=== PATIENT | female | born 1950 | race Caucasian/White ===

== ENCOUNTER 2021-10-24 11:16 | Inpatient (IN) ==
[2021-10-24 15:17] LABS: Urine Appearance Cloudy; Urine Bilirubin Negative (Negative); Urine Blood Negative (Negative); Urine Color Yellow; Urine Glucose 2+(150 mg/dL) (Negative); Urine Ketones Negative (Negative); Urine Nitrite Negative (Negative); Urine Protein Negative (Negative); Urine Specific Gravity 1.017 (1.002-1.030); Urine Urobilinogen Negative (Negative)
[2021-10-24] MEDS ORDERED: Magnesium Hydroxide LIQ 30 ML UDC PO PRN (17:21)
[2021-10-24] MEDS ORDERED: Senna TAB 8.6 mg TAB PO PRN (17:21)
[2021-10-24] MEDS ORDERED: Polyethylene Glycol 3350 17 GM PACKET PO PRN (17:33)
[2021-10-24] MEDS ORDERED: Dextrose 50% Syringe 50 ml 25 GM/50 ML SYRINGE IV PUSH PRN (17:36)
[2021-10-24] MEDS: Scopolamine 1 mg/72hr PATCH TRANSDERM SCH (19:35)
[2021-10-25 07:00] LABS: Hematocrit 32 % (35-47); Hemoglobin 10.4 g/dL (12.0-16.0); Mean Corpuscular HGB Conc 33 g/dL (31-36); Mean Corpuscular Hemoglobin 20 pg (27-31); Mean Corpuscular Volume 61 fL (80-97); Mean Platelet Volume 9.3 fL (7.4-10.4); Platelet Count 288 10^3/uL (150-450); Red Blood Count 5.28 10^6 /uL (3.70-4.87); Red Cell Distribution Width 16 % (10-15)
[2021-10-25 07:18] LABS: Albumin 3.5 g/dL (3.2-5.2); Albumin/Globulin Ratio 1.8 (1-3); Calcium 8.8 mg/dL (8.6-10.3); Potassium 4.3 mmol/L (3.5-5.0); Total Bilirubin 0.8 mg/dL (0.2-1.0); Total Protein 5.5 g/dL (6.4-8.9); eGFR CKD-EPI 107.7 (>60)
[2021-10-25 09:35] LABS: ABS Lymphocytes 1.7 10^3/ul (1.0-4.8); ABS Monocytes 0.6 10^3/ul (0-0.8); ABS Neutrophils 7.6 10^3/ul (1.5-7.7); Eosinophil % 0.2 %; Hypochromasia 3+; Lymphocyte % 17.5 %; Microcytosis 3+; Nucleated Red Blood Cells % 0.1
[2021-10-25 09:36] LABS: Schistocytes 1+
[2021-10-27] MEDS: Scopolamine 1 mg/72hr PATCH TRANSDERM SCH (20:41)
[2021-10-30] MEDS: Scopolamine 1 mg/72hr PATCH TRANSDERM SCH (20:10)
[2021-11-01 04:24] VITALS: BP 100/65
[2021-11-01 07:59] LABS: Hematocrit 31 % (35-47); Mean Corpuscular HGB Conc 32 g/dL (31-36); Mean Corpuscular Hemoglobin 20 pg (27-31); Mean Corpuscular Volume 61 fL (80-97); Platelet Count 262 10^3/uL (150-450); Red Blood Count 5.14 10^6 /uL (3.70-4.87); Red Cell Distribution Width 16 % (10-15); White Blood Count 13.2 10^3/uL (3.5-10.8)
[2021-11-01 08:45] LABS: Hypochromasia 2+; Microcytosis 3+; Schistocytes 1+; Tear Drop Cells 1+
[2021-11-01 08:46] LABS: ABS Lymphocytes 2.3 10^3/ul (1.0-4.8); ABS Monocytes 0.8 10^3/ul (0-0.8); Eosinophil % 0.3 %; Lymphocyte % 17.6 %; Nucleated Red Blood Cells % 0.2; Polychromasia 1+
[2021-11-01 08:55] LABS: Albumin 3.5 g/dL (3.2-5.2); Albumin/Globulin Ratio 1.8 (1-3); Calcium 8.6 mg/dL (8.6-10.3); Globulin 1.9 g/dL (2-4); Potassium 3.6 mmol/L (3.5-5.0); Total Bilirubin 0.9 mg/dL (0.2-1.0); Total Protein 5.4 g/dL (6.4-8.9); eGFR CKD-EPI 105.2 (>60)
== END 2021-11-01 15:45 | disposition home or self-care (01) | DRG 55 ==
LOC: PMRU 14:24
PROVIDERS: ADMIT Physical Medicine & Rehabilitation; ATTEND Physical Medicine & Rehabilitation